=== PATIENT | female | born 1975 | race Caucasian/White ===

== ENCOUNTER 2023-01-01 12:53 | Inpatient (IN) | payer MEDICAID, OTHER ==
[~2023-01-01] VITALS: Ht 154.9 cm; Wt 81.6 kg
[2023-01-01 13:08] VITALS: BP 136/91; PULSE 74; RESP 15; TEMP 98.7; O2SAT 99
[2023-01-01] MEDS ORDERED: KETOROLAC 30 MG/ML VIAL IVP ONE (14:10)
[2023-01-01] MEDS ORDERED: AMPICILLIN/SULBACTAM 3 GM in NACL 0.9% 100 ML IV ONE (14:10)
[2023-01-01] MEDS ORDERED: AMPICILLIN/SULBACTAM 3 GM VIAL ONE (14:17)
[2023-01-01 14:41] LABS: ALBUMIN 3.2 g/dL (3.4-5.0); ANION GAP 20.3 (8-16); CALCIUM 7.3 mg/dL (8.5-10.1); CARBON DIOXIDE 15.4 mmol/L (21-32); CREATININE 3.1 mg/dL (0.6-1.3); TOTAL BILIRUBIN 0.7 mg/dL (0.0-1.0); TOTAL PROTEIN, SERUM 7.5 g/dL (6.4-8.2)
[2023-01-01 14:43] LABS: POTASSIUM 2.7 mmol/L (3.5-5.1)
[2023-01-01] MEDS ORDERED: NACL 0.9% 500 ML IV ONE (15:00)
[2023-01-01] MEDS ORDERED: KCL 20 MEQ IN 100 mL PREMIX 200 ML IV ONE ×2 (15:00→22:45)
[2023-01-01] MEDS ORDERED: MORPHINE SULFATE 4 MG/ML SYR IVP ONE (15:10)
[2023-01-01 15:24] LABS: FLU A ANTIGEN negative (NEGATIVE); FLU B ANTIGEN NEGATIVE (NEGATIVE)
[2023-01-01 15:31] LABS: APPEARANCE,URINE CLEAR (CLEAR); BILIRUBIN,URINE NEGATIVE (NEGATIVE); BLOOD, URINE TRACE-I (NEGATIVE); COLOR,URINE YELLOW (YELLOW); LEUKOCYTE ESTERASE ,URINE NEGATIVE (NEGATIVE); NITRITE, URINE NEGATIVE (NEGATIVE); PROTEIN,URINE TRACE (NEGATIVE); UGLUCOSE NEGATIVE (NEGATIVE); UROBILINOGEN,URINE 0.2 EU/dL (0.2 - 1)
[2023-01-01 15:36] LABS: BACTERIA,URINE 0-2 /HPF (None Seen); RBC,URINE 0-5 /HPF (0-5); WBC,URINE 0 /HPF (0-5)
[2023-01-01 15:37] LABS: MUCUS,URINE None Seen /LPF (None Seen); SQUAMOUS EPITHELIAL CELL,UR 4-10 (MOD) /LPF (0-3 (FEW))
[2023-01-01 16:20] LABS: BASOPHILS # (AUTO) 0.1 K/uL (0.00-0.22); BASOPHILS % (AUTO) 0.5 % (0.0-2.0); EOSINOPHILS # (AUTO) 0.1 K/uL (0-0.4); EOSINOPHILS % (AUTO) 1.3 % (0.0-4.0); HEMATOCRIT 26.5 % (36-48); HEMOGLOBIN 8.8 g/dL (12.0-16.0); LYMPHOCYTES # (AUTO) 1.3 K/uL (2.5-16.5); LYMPHOCYTES % (AUTO) 11.5 % (20.5-51.1); MEAN CORPUSCULAR HEMOGLOBIN 33 pg (27-31); MEAN CORPUSCULAR HGB CONC 33 g/dL (33-37); MEAN CORPUSCULAR VOLUME 100.4 fL (80-94); MONOCYTES % (AUTO) 8.6 % (1.7-9.3); NEUTROPHILS # (AUTO) 8.7 K/uL (1.8-7.7); NEUTROPHILS % (AUTO) 78.1 % (42.2-75.2); PLATELET COUNT (AUTO) 213 K/uL (140-450); RED BLOOD CELL COUNT(AUTO) 2.64 MIL/uL (4.20-5.40); RED CELL DISTRIBUTION WIDTH 13.5 % (11.6-13.7); WHITE BLOOD COUNT (AUTO) 11.2 K/uL (4.8-10.8)
[2023-01-01] MEDS ORDERED: ONDANSETRON 4 MG/2 ML VIAL IVP PRN ×2 (17:20→21:15)
[2023-01-01] MEDS ORDERED: MAG SULF 2000 MG/WATER PREMIX 50 ML IV PRN (17:20)
[2023-01-01] MEDS ORDERED: POTASSIUM CHLORIDE 10 MEQ TABER PO PRN (17:20)
[2023-01-01] MEDS ORDERED: MAGNESIUM OXIDE 400 MG TAB PO PRN (17:20)
[2023-01-01] MEDS ORDERED: NACL 0.9% 1,000 ML IV SCH (17:20)
[2023-01-01] MEDS ORDERED: LORazepam 1 MG TAB PO PRN (17:20)
[2023-01-01] MEDS ORDERED: KCL 20 MEQ IN 100 mL PREMIX 200 ML IV PRN (17:20)
[2023-01-01] MEDS ORDERED: ZOLPIDEM 5 MG TAB PO PRN (17:20)
[2023-01-01] MEDS ORDERED: ACETAMINOPHEN 325 MG TAB PO PRN (17:20)
[2023-01-01] MEDS ORDERED: HYDROcodone/APAP 5/325 MG 1 TAB TAB PO PRN (17:20)
[2023-01-01] MEDS: HYDROmorphone 1 MG/ML AMP IVP PRN (18:58)
[2023-01-01] MEDS ORDERED: fentaNYL citrate 0.05 MG/ML VIAL ONE (19:54)
[2023-01-01] MEDS ORDERED: MIDAZOLAM 2 MG/2 ML VIAL ONE ×2 (19:55→20:00)
[2023-01-01] MEDS ORDERED: LIDOCAINE 1% 500 MG/ 50 ML VIAL ONE (20:00)
[2023-01-01] MEDS ORDERED: ePHEDrine 50 MG/ML VIAL ONE ×2 (20:00→21:04)
[2023-01-01] MEDS ORDERED: fentaNYL citrate 0.05 MG/ML - 50mL vial IV ONE (20:00)
[2023-01-01] MEDS ORDERED: ONDANSETRON 4 MG/2 ML VIAL ONE ×2 (20:00→20:42)
[2023-01-01] MEDS ORDERED: PROPOFOL 200 MG/20 ML VIAL IV ONE ×2 (20:00→20:42)
[2023-01-01] MEDS ORDERED: KETOROLAC 30 MG/ML VIAL ONE (20:00)
[2023-01-01] MEDS ORDERED: SEVOFLURANE 250 ML BTL INH ONE (20:00)
[2023-01-01] MEDS ORDERED: LIDOCAINE/EPI MPF 1%1:200000 30 ML VIAL INJ ONE (20:23)
[2023-01-01] MEDS ORDERED: BUPIVACAINE-MPF 0.25% 30 ML VIAL INJ ONE (20:24)
[2023-01-01] MEDS ORDERED: METOCLOPRAMIDE 10 MG/2 ML INJ VIAL ONE (21:04)
[2023-01-01] MEDS ORDERED: MORPHINE SULFATE 4 MG/ML SYR IV PRN (21:15)
[2023-01-01] MEDS ORDERED: diphenhydrAMINE 50 MG/ML VIAL IVP PRN (21:15)
[2023-01-01] MEDS ORDERED: HYDROmorphone 1 MG/ML AMP IVP PRN (21:15)
[2023-01-01] MEDS ORDERED: MEPERIDINE 25 MG/ML SYR IVP PRN (21:15)
[2023-01-01 21:50] VITALS: PULSE 81; RESP 18; O2SAT 100
[2023-01-01] MEDS ORDERED: POTASSIUM CHLORIDE 10 MEQ TABER PO ONE (22:45)
[2023-01-01] MEDS: LACTATED RINGERS 1,000 ML IV SCH (23:04)
[2023-01-01] MEDS ORDERED: AMPICILLIN/SULBACTAM 1.5 GM VIAL ONE (23:06)
[2023-01-01] MEDS: AMPICILLIN/SULBACTAM 1.5 GM in NACL 0.9% 50 ML IV SCH (23:11)
[2023-01-02 04:00] VITALS: BP 112/67; PULSE 84; RESP 18; TEMP 97.8; O2SAT 100
[2023-01-02] MEDS: LACTATED RINGERS 1,000 ML IV SCH ×2 (05:16→13:55)
[2023-01-02 05:46] LABS: BASOPHILS % (AUTO) 0.3 % (0.0-2.0); HEMATOCRIT 22.1 % (36-48); HEMOGLOBIN 7.4 g/dL (12.0-16.0); LYMPHOCYTES % (AUTO) 9.8 % (20.5-51.1); MEAN CORPUSCULAR HEMOGLOBIN 34 pg (27-31); MEAN CORPUSCULAR HGB CONC 34 g/dL (33-37); MEAN CORPUSCULAR VOLUME 101.2 fL (80-94); MONOCYTES # (AUTO) 1.1 K/uL (0.8-1.0); MONOCYTES % (AUTO) 11.1 % (1.7-9.3); NEUTROPHILS # (AUTO) 7.8 K/uL (1.8-7.7); NEUTROPHILS % (AUTO) 78.8 % (42.2-75.2); PLATELET COUNT (AUTO) 178 K/uL (140-450); RED BLOOD CELL COUNT(AUTO) 2.18 MIL/uL (4.20-5.40); RED CELL DISTRIBUTION WIDTH 13.5 % (11.6-13.7); WHITE BLOOD COUNT (AUTO) 9.9 K/uL (4.8-10.8)
[2023-01-02 06:15] LABS: ALBUMIN 2.5 g/dL (3.4-5.0); ANION GAP 18.3 (8-16); CALCIUM 7.1 mg/dL (8.5-10.1); CARBON DIOXIDE 15.7 mmol/L (21-32); CREATININE 3.1 mg/dL (0.6-1.3); MAGNESIUM 0.9 mg/dL (1.8-2.4); PHOSPHORUS 5.8 mg/dL (2.5-4.9); TOTAL BILIRUBIN 0.5 mg/dL (0.0-1.0)
[2023-01-02 08:00] VITALS: PULSE 79; RESP 18; O2SAT 99
[2023-01-02] MEDS: HYDROmorphone 1 MG/ML AMP IVP PRN ×4 (08:25→15:09)
[2023-01-02] MEDS ORDERED: ENOXAPARIN 40 MG/0.4 ML SYR SUBQ SCH (09:00)
[2023-01-02] MEDS ORDERED: ENOXAPARIN 30 MG/0.3 ML SYR SUBQ SCH (09:00)
[2023-01-02] MEDS ORDERED: DOCUSATE SODIUM 100 MG GELCAP PO SCH (09:00)
[2023-01-02] MEDS ORDERED: TRAM50TA3 PO (11:50)
[2023-01-02] MEDS ORDERED: [UNRECOGNIZED DRUG - CODE] PO (11:50)
[2023-01-02] MEDS ORDERED: DOXY-690 PO (11:50)
[2023-01-02] MEDS: AMPICILLIN/SULBACTAM 1.5 GM in NACL 0.9% 50 ML IV SCH (12:39)
== END 2023-01-02 16:25 | disposition home or self-care (01) | DRG 385 ==
LOC: MED 12:53 → MMU 17:21 → MTU 21:58
PROVIDERS: ADMIT Hospitalist; ATTEND Hospitalist
PROC: 0H9T0ZZ Drainage of Right Breast, Open Approach (ICD-10-PCS; 2023-01-01)
PROC: 0JB60ZZ Excision of Chest Subcutaneous Tissue and Fascia, Open Approach (ICD-10-PCS; principal; 2023-01-01 19:30)
DX: N61.1 Abscess of the breast and nipple (principal); E44.0 Moderate protein-calorie malnutrition; E83.51 Hypocalcemia; E87.6 Hypokalemia; Z20.822 Contact with and (suspected) exposure to COVID-19; I12.9 Hypertensive chronic kidney disease with stage 1 through stage 4 chronic kidney disease, or unspecified chronic kidney disease; N18.30 Chronic kidney disease, stage 3 unspecified; Z79.899 Other long term (current) drug therapy; Z68.34 Body mass index [BMI] 34.0-34.9, adult
CPT/HCPCS: 36415; 71045; 80053; 81001; 83735; 84100; 85025; 87070; 87075; 87081; 87205; 88304; 93005; 96361; 96365; 96367; 96375; 99285; J0295; J1170; J1650; J1885; J2001; J2250; J2270; J2405; J2704; J2765; J3010; J3475; J3480; J3490; Q0092

== ENCOUNTER 2023-04-24 18:08 | Emergency (ER) | payer OTHER ==
[~2023-04-24] VITALS: Ht 160 cm; Wt 81.6 kg
[~2023-04-24 18:08] MED LIST: DOXY-690 PO; TRAM50TA3 PO; [UNRECOGNIZED DRUG - CODE] PO
[2023-04-24 18:19] VITALS: BP 141/65; PULSE 79; RESP 16; TEMP 97.2; O2SAT 98
[2023-04-24 18:45] VITALS: O2SAT 98
[2023-04-24] MEDS: HYDROcodone/APAP 5/325 MG 1 TAB TAB PO ONE (19:18)
[2023-04-24 19:38] VITALS: O2SAT 98
[2023-04-24] MEDS: MORPHINE SULFATE 4 MG/ML SYR IM ONE (20:29)
[2023-04-24 20:55] VITALS: BP 126/72; PULSE 74; RESP 17; TEMP 97.9; O2SAT 99
== END 2023-04-24 20:55 | disposition home or self-care (01) ==
LOC: MED 18:08
DX: S99.921A Unspecified injury of right foot, initial encounter (principal); Z79.899 Other long term (current) drug therapy; W01.0XXA Fall on same level from slipping, tripping and stumbling without subsequent striking against object, initial encounter; Y92.89 Other specified places as the place of occurrence of the external cause; Y93.89 Activity, other specified; Y99.8 Other external cause status
CPT/HCPCS: 29515; 73590; 73610; 73630; 81025; 96372; 99285; J2270

== ENCOUNTER 2023-05-05 12:53 | Emergency (ER) | payer OTHER ==
[~2023-05-05] VITALS: Ht 160 cm; Wt 82.1 kg
[2023-05-05 13:10] VITALS: BP 155/104; PULSE 71; RESP 20; TEMP 98.5; O2SAT 98
[2023-05-05] MEDS: KETOROLAC 30 MG/ML VIAL IM ONE (13:41)
[2023-05-05] MEDS: MORPHINE SULFATE 4 MG/ML SYR IM ONE (13:55)
[2023-05-05] MEDS: LIDOCAINE MPF 1% 10 MG/ML VIAL INJ ONE (14:25)
[2023-05-05] MEDS ORDERED: LIDOCAINE MPF 1% 5 ML ONE (14:28)
[2023-05-05] MEDS ORDERED: cefTRIAXone 1,000 MG VIAL ONE (14:28)
[2023-05-05] MEDS ORDERED: CEPH-588 PO (14:33)
[2023-05-05] MEDS ORDERED: IBUP-2213 PO (14:33)
[2023-05-05] MEDS ORDERED: SULF-59 PO (14:33)
[2023-05-05] MEDS ORDERED: ACET-8905 PO (14:33)
[2023-05-05] MEDS ORDERED: ONDA-188 SL (14:33)
[2023-05-05] MEDS: cefTRIAXone 1,000 MG in LIDOCAINE MPF 1% 2.1 ML IM ONE (14:37)
== END 2023-05-05 14:45 | disposition home or self-care (01) ==
LOC: MED 12:53
DX: N61.1 Abscess of the breast and nipple (principal); I10 Essential (primary) hypertension; Z79.899 Other long term (current) drug therapy
CPT/HCPCS: 10060; 96372; 99284; J0696; J1885; J2001; J2270